=== PATIENT | female | born 1995 | race Caucasian/White ===

== ENCOUNTER 2020-03-17 23:52 | Inpatient (IN) | payer MEDICAID ==
[~2020-03-17] VITALS: Ht 160 cm; Wt 132.4 kg
[2020-03-18 00:03] VITALS: BP 106/69
--- NOTE | 2020-03-18 00:03 | NUR ---
PT W/C ASSITED TO BED #9
[2020-03-18] MEDS ORDERED: NACL 0.9% 1,000 ML IV ONE ×2 (00:25→01:40)
--- NOTE | 2020-03-18 00:25 | NUR ---
24 year old female presents to ED with altered mental status x 4 hours. per pt mom, states she is not in her baseline, states that pt went to restroom earlier in the evening and did not look like herself. pt is a/o x 4, speech is slowed and slurred.PERRLA. denies headache/blurry vision. cbl sounds. respirations even and unlabored. denies sob/cough. abdomen soft and nontender. bowel sounds normoactive. denies n/v/d. pt is ambulatory. awaiting MSE. connected to cardiac monitoring and pulse oximeter monitoring. safety precautions in place with bed lowest and locked, rails x 2. pmhx: covid + january 2020 andresa
[2020-03-18 01:07] LABS: BASOPHILS # (AUTO) 0.1 K/uL (0.00-0.22); BASOPHILS % (AUTO) 0.4 % (0.0-2.0); EOSINOPHILS # (AUTO) 0.1 K/uL (0-0.4); EOSINOPHILS % (AUTO) 0.6 % (0.0-4.0); HEMATOCRIT 35.6 % (36-48); HEMOGLOBIN 11.4 g/dL (12.0-16.0); LYMPHOCYTES # (AUTO) 2.2 K/uL (2.5-16.5); LYMPHOCYTES % (AUTO) 14.3 % (20.5-51.1); MEAN CORPUSCULAR HEMOGLOBIN 25 pg (27-31); MEAN CORPUSCULAR HGB CONC 32 g/dL (33-37); MEAN CORPUSCULAR VOLUME 78.8 fL (80-94); MONOCYTES # (AUTO) 0.6 K/uL (0.8-1.0); MONOCYTES % (AUTO) 4.3 % (1.7-9.3); NEUTROPHILS # (AUTO) 12.2 K/uL (1.8-7.7); NEUTROPHILS % (AUTO) 80.4 % (42.2-75.2); PLATELET COUNT (AUTO) 228 K/uL (140-450); RED BLOOD CELL COUNT(AUTO) 4.52 MIL/uL (4.20-5.40); RED CELL DISTRIBUTION WIDTH 16.4 % (11.6-13.7); WHITE BLOOD COUNT (AUTO) 15.1 K/uL (4.8-10.8)
--- NOTE | 2020-03-18 01:28 | NUR ---
taken to CT via w/c
[2020-03-18 01:29] LABS: ALBUMIN 3.3 g/dL (3.4-5.0); ANION GAP 15.8 (8-16); CARBON DIOXIDE 26.1 mmol/L (21-32); CREATININE 0.7 mg/dL (0.6-1.3); POTASSIUM 3.9 mmol/L (3.5-5.1); TOTAL BILIRUBIN 0.3 mg/dL (0.0-1.0)
[2020-03-18 01:44] LABS: FREE T4 (FREE THYROXINE) 0.93 ng/dL (0.76-1.46); THYROID STIMULATING HORMONE 1.18 uIU/mL (0.34-3.74)
[2020-03-18] MEDS ORDERED: cefTRIAXone 1,000 MG VIAL ONE (01:55)
--- NOTE | 2020-03-18 02:00 | NUR ---
rocephine initiated via IV on left hand.
[2020-03-18 02:56] LABS: BARBITURATE, URINE NEGATIVE ng/ml (NEG <=200); BENZODIAZEPINE, URINE NEGATIVE ng/mL (NEG <=200); CANNABINOID, URINE POSITIVE ng/mL (NEG <=50); COCAINE, URINE NEGATIVE ng/mL (NEG <=300); OPIATE, URINE NEGATIVE ng/mL (NEG <=2000); PHENCYCLIDINE SCREEN,URINE NEGATIVE ng/mL (NEG <=25)
--- NOTE | 2020-03-18 03:23 | NUR ---
lab at bedside collecting 2nd round of lactic acid.
[2020-03-18 03:59] LABS: APPEARANCE,URINE HAZY (CLEAR); BILIRUBIN,URINE NEGATIVE (NEGATIVE); BLOOD, URINE NEGATIVE (NEGATIVE); COLOR,URINE YELLOW (YELLOW); LEUKOCYTE ESTERASE ,URINE 1+ (NEGATIVE); NITRITE, URINE NEGATIVE (NEGATIVE); PH,URINE 5.5 (5.0-9.0); UGLUCOSE NEGATIVE (NEGATIVE)
[2020-03-18 04:00] LABS: RBC,URINE 0-5 /HPF (0-5); WBC,URINE 20-60 /HPF (0-5)
--- NOTE | 2020-03-18 04:50 | NUR ---
PT ARRIVED TO UNIT FROM ER DEPT VIA GURNEY. RECEIVED BEDSIDE REPORT FROM ER NURSE. PT AAOX4, AMBULATORY, AND ABLE TO MAKE NEEDS KNOWN. PT CALM AND COOPERATIVE TO CARE. RESPIRATIONS EVEN AND UNLABORED TO ROOM AIR. SKIN IS WARM, DRY, AND INTACT. ABDOMEN IS SOFT AND NON-TENDER. IV ACCESS ON LEFT HAND G20 PATENT AND INTACT. PT DENIES ANY PAIN BUT COMPLAINS OF DIZZINESS. PT DENIES ANY DRUG USE PRIOR ADMISSION TO ER. PT WELCOMED AND ORIENTED TO ROOM. VS WITHIN NORMAL LIMITS. MRSA SWAB TAKEN. PLAN OF CARE DISCUSSED. PT VERBALIZED UNDERSTANDING. PT KEPT COMFORTABLE. NO REQUESTS MADE. SAFETY AND FALL PRECAUTIONS IN PLACE. BED IN LOW POSITION, SIDE RAILS UP, NON SKID SOCKS IN PLACE. CALL LIGHT WITHIN REACH.WILL CONTINUE TO MONITOR.
--- NOTE | 2020-03-18 04:52 | NUR ---
pt admitted to the care of Dr. Wright. admitted to telemetry room 127B. belongings list completed. report given to juan m teran.
[2020-03-18 05:07] VITALS: BP 134/54
[2020-03-18] MEDS: NACL 0.9% 1,000 ML IV SCH ×3 (06:24→23:37)
--- NOTE | 2020-03-18 07:07 | NUR ---
GAVE BEDSIDE SHIFT REPORT TO DAY SHIFT NURSE. PATIENT IN STABLE CONDITION.
--- NOTE | 2020-03-18 07:12 | NUR ---
RECEIVED PT FROM ELECTRIC LOCOMOTIVE CRANE OPERATOR NURSE, PT IS AWAKE AND LYING ON THE BED WITH SAFETY PRECAUTION INITIATED, IV LINE NOTED ON THE LEFT HAND G. 20 WITH IVF NS INFUSING AT 120ML/HR, INTACT, PT IS ON ROOM AIR AND NO SIGN OF DISTRESS NOTED. WILL CONTINUE TO MONITOR PT.
--- NOTE | 2020-03-18 07:26 | NUR ---
PATIENT HAS BEEN SCREENED AND CATEGORIZED MODERATE NUTRITION RISK. PATIENT WILL BE SEEN WITHIN 3-5 DAYS OF ADMISSION. 03/20/20 03/22/[address]
[2020-03-18 08:00] VITALS: BP 114/80
[2020-03-18] MEDS ORDERED: MORPHINE SULFATE 2 MG/ML SYR IVP PRN (09:15)
[2020-03-18] MEDS ORDERED: DOCUSATE SODIUM 100 MG GELCAP PO PRN (09:15)
[2020-03-18] MEDS ORDERED: ONDANSETRON 4 MG/2 ML VIAL IM/IVP PRN (09:15)
[2020-03-18] MEDS ORDERED: MAG SULF 2000 MG/WATER PREMIX 50 ML IV PRN (09:15)
[2020-03-18] MEDS ORDERED: HYDROcodone/APAP 5/325 MG 1 TAB TAB PO PRN (09:15)
[2020-03-18] MEDS ORDERED: LORazepam 2 MG/ML VIAL IM/IVP PRN (09:15)
[2020-03-18] MEDS ORDERED: ZOLPIDEM 5 MG TAB PO PRN (09:15)
[2020-03-18] MEDS ORDERED: POTASSIUM CHLORIDE 10 MEQ TABER PO PRN (09:15)
[2020-03-18] MEDS ORDERED: ACETAMINOPHEN 325 MG TAB PO PRN (09:15)
--- NOTE | 2020-03-18 09:25 | NUR ---
PT IS AWAKE AND SEATED ON THE BED, NEUROLOGICAL ASSESSMENT DONE AND PT IS AOX4, DENIES PAIN AND NO SIGN OF DISTRESS NOTED. WILL MONITOR PT.
[2020-03-18 10:18] LABS: PROTHROMBIN TIME 10.3 secs (10.8-13.4)
[2020-03-18 10:19] LABS: AMYLASE 38 U/L (25-115); LIPASE 44 U/L (73-393)
[2020-03-18 12:00] VITALS: BP 102/45
--- NOTE | 2020-03-18 12:45 | NUR ---
PT IS SLEEPING NOW, NO SIGN OF DISTRESS NOTED. WILL MONITOR PT.
--- NOTE | 2020-03-18 14:35 | NUR ---
PT WAS SEEN AMBULATING WITH STEADY GAIT, DENIES PAIN AND NO SIGN OF DISTRESS NOTED. WILL MONITOR PT.
--- NOTE | 2020-03-18 15:09 | NUR ---
HANG ANOTHER IVF BAG OF NS NOW.
[2020-03-18 16:00] VITALS: BP 115/74
--- NOTE | 2020-03-18 17:00 | NUR ---
PT IS CALM AND WATCHING TV NOW, DENIES ANY PAIN, AND WILL CONTINUE TO BE MONITORED.
--- NOTE | 2020-03-18 19:15 | NUR ---
RECEIVED REPORT FROM AM NURSE, JULIO. PATIENT IS SITTING IN BED WATCHING TV. PATIENT IS A/OX4, ON ROOM AIR, RESPIRATIONS EVEN AND UNLABORED. TELEMONITOR NOTED. IV SITE PATENT AND INTACT, NS INFUSING AT 120ML/HR. SKIN IS WARM, DRY, AND INTACT. NO SIGNS OF DISTRESS NOTED AT THIS TIME. SAFETY PRECAUTIONS IN PLACE. WILL CONTINUE TO MONITOR.
--- NOTE | 2020-03-18 19:25 | NUR ---
ENDORSED PT TO PAINT SPECIALIST NURSE PA FOR CONTINUITY OF CARE.
[2020-03-18 20:00] VITALS: BP 111/65
--- NOTE | 2020-03-18 21:00 | NUR ---
ADMINISTERED SCHEDULED MEDICATION. EDUCATION WAS GIVEN. PATIENT TOLERATED WELL. PATIENT ASKED FOR SLEEPING PILL. MEDICATION WAS GIVEN PER MD ORDER. WILL CONTINUE TO MONITOR.
--- NOTE | 2020-03-18 23:15 | NUR ---
PATIENT IS SLEEPING AT THIS TIME. NO SIGNS OF DISTRESS NOTED. WILL CONTINUE TO MONITOR.
[2020-03-19] VITALS: BP 99/60
--- NOTE | 2020-03-19 00:15 | NUR ---
SCHEDULED IV MEDICATION WAS ADMINISTERED. PATIENT IS IN STABLE CONDITION. WILL CONTINUE TO MONITOR.
--- NOTE | 2020-03-19 02:20 | NUR ---
PATIENT IS SLEEPING. VISIBLE CHEST RISE NOTED. WILL CONTINUE TO MONITOR.
[2020-03-19 04:00] VITALS: BP 105/57
--- NOTE | 2020-03-19 04:51 | NUR ---
PATIENT SLEEPING. LAB AT BEDSIDE TO DRAW BLOOD. PATIENT TOLERATED WELL. WILL CONTINUE TO MONITOR.
[2020-03-19 06:23] LABS: BASOPHILS % (AUTO) 0.3 % (0.0-2.0); EOSINOPHILS # (AUTO) 0.2 K/uL (0-0.4); EOSINOPHILS % (AUTO) 2.1 % (0.0-4.0); HEMATOCRIT 30.6 % (36-48); HEMOGLOBIN 9.9 g/dL (12.0-16.0); LYMPHOCYTES # (AUTO) 3.3 K/uL (2.5-16.5); LYMPHOCYTES % (AUTO) 33.1 % (20.5-51.1); MEAN CORPUSCULAR HEMOGLOBIN 26 pg (27-31); MEAN CORPUSCULAR HGB CONC 32 g/dL (33-37); MONOCYTES # (AUTO) 0.5 K/uL (0.8-1.0); MONOCYTES % (AUTO) 4.6 % (1.7-9.3); NEUTROPHILS % (AUTO) 59.9 % (42.2-75.2); PLATELET COUNT (AUTO) 184 K/uL (140-450); RED BLOOD CELL COUNT(AUTO) 3.87 MIL/uL (4.20-5.40); RED CELL DISTRIBUTION WIDTH 16.3 % (11.6-13.7)
[2020-03-19 06:39] LABS: ANION GAP 10.9 (8-16); CARBON DIOXIDE 25.9 mmol/L (21-32); CREATININE 0.6 mg/dL (0.6-1.3); POTASSIUM 3.8 mmol/L (3.5-5.1)
[2020-03-19 06:42] LABS: MAGNESIUM 1.8 mg/dL (1.8-2.4); PHOSPHORUS 3.7 mg/dL (2.5-4.9)
[2020-03-19 06:43] LABS: CHOL/HDL RATIO 3.3 (1-4.5)
[2020-03-19] MEDS: NACL 0.9% 1,000 ML IV SCH (07:15)
--- NOTE | 2020-03-19 07:44 | NUR ---
ENDORSED CARE TO AM NURSE. PATIENT IS IN STABLE CONDITION.
--- NOTE | 2020-03-19 07:49 | NUR ---
RECEIVED BEDSIDE REPORT FROM NIGHTSHIFT NURSE. PT RESTING IN BED. ABLE TO MAKE SOME NEEDS KNOWN. RESPIRATIONS EVEN AND UNLABORED WITH NO SOB OR RESPIRATORY DISTRESS. SKIN WARM AND DRY TO TOUCH. IV SITE IN L HAND 20G IS CLEAN, DRY, AND INTACT. SAFETY MEASURES IN PLACE. WILL CONTINUE TO MONITOR
[2020-03-19 08:00] VITALS: BP 98/53
--- NOTE | 2020-03-19 09:16 | NUR ---
ADMINISTERED SCHED MED PRESCRIBED PER MD ORDER. PT TOLERATED WELL. MEDICATION EDUCATION PERFORMED. PT VERBALIZED UNDERSTANDING. SAFETY MEASURES IN PLACE. WILL CONTINUE TO MONITOR
[2020-03-19] MEDS ORDERED: NITR100C7 PO (10:30)
[2020-03-19] MEDS ORDERED: OMEP20TC22 PO (10:30)
--- NOTE | 2020-03-19 11:02 | NUR ---
PATIENT IS AWARE OF DISCHARGE AND WOULD LIKE TO GO HOME AFTER LUNCH. WILL CONTINUE TO MONITOR
--- NOTE | 2020-03-19 11:10 | NUR ---
HOURLY ROUNDING. PT RESTING IN BED. ABLE TO MAKE SOME NEEDS KNOWN. RESPIRATIONS EVEN AND UNLABORED WITH NO SOB OR RESPIRATORY DISTRESS. SKIN WARM AND DRY TO TOUCH. SAFETY MEASURES IN PLACE. WILL CONTINUE TO MONITOR
[2020-03-19 12:00] VITALS: BP 121/76
[2020-03-19 13:30] VITALS: BP 121/76
--- NOTE | 2020-03-19 14:15 | NUR ---
WENT OVER DISCHARGE INSTRUCTIONS WITH PATIENT. HAD PATIENT SIGN APPROPRIATE DOCUMENTS. EDUCATED PATIENT TO VISIT ED FOR ANY SIGNS OF DISTRESS. PT VERBALIZED UNDERSTANDING. REMOVED INTACT IV CANNULA, ID BAND, AND TELE MONITOR. TELE MONITOR RETURNED TO RAISE MINER. PATIENT IS UP TO DATE ON VACCINATIONS. MASK PROVIDED. PT CHANGED INTO OWN CLOTHES. PT GATHERED THEIR BELONGINGS. PT IS STABLE TO GO HOME.
== END 2020-03-19 14:15 | disposition home or self-care (01) | DRG 720 ==
LOC: MED 23:52 → MMU 03-18 04:22
DX: A41.9 Sepsis, unspecified organism (principal); F20.9 Schizophrenia, unspecified; R65.20 Severe sepsis without septic shock; N39.0 Urinary tract infection, site not specified; F63.3 Trichotillomania; E44.1 Mild protein-calorie malnutrition; K52.9 Noninfective gastroenteritis and colitis, unspecified; E66.9 Obesity, unspecified; G93.41 Metabolic encephalopathy; F12.90 Cannabis use, unspecified, uncomplicated; Z81.8 Family history of other mental and behavioral disorders; Z56.0 Unemployment, unspecified; Z68.43 Body mass index [BMI] 50.0-59.9, adult; Z91.14 Patient's other noncompliance with medication regimen
CPT/HCPCS: 36415; 70450; 71045; 80048; 80053; 80305; 81001; 82140; 82150; 83036; 83605; 83690; 83735; 83880; 84100; 84134; 84439; 84443; 84484; 85025; 85610; 85730; 87040; 87081; 87086; 96361; 96365; 99291; J0696; J1644; J7030; J7060; Q0092